=== PATIENT | male | born 1970 | race Caucasian/White ===

== ENCOUNTER 2019-12-11 23:45 | Emergency (ER) | payer MEDICAID, SELFPAY ==
[2019-12-11 23:48] VITALS: BP 131/88; PULSE 84; RESP 18; TEMP 36.6; O2SAT 94; BMI 30.9
--- NOTE | 2019-12-11 23:49 | CTR_ITS ---
PROCEDURE INFORMATION: Exam: CT Head Without Contrast Exam date and time: 12/11/2019 12:59 AM Age: 48 years old Clinical indication: Pain; Headache and other: Seizure; Headache not specified; Additional info: Seizure/injury TECHNIQUE: Imaging protocol: Computed tomography of the head without contrast. Radiation optimization: All CT scans at this facility use at least one of these dose optimization techniques: automated exposure control; mA and/or kV adjustment per patient size (includes targeted exams where dose is matched to clinical indication); or iterative reconstruction. COMPARISON: No relevant prior studies available. RADIATION DOSE METRICS: Total DLP (mGy-cm): 868.19 FINDINGS: Brain: No acute intracranial hemorrhage or mass effect. No definite acute infarct by CT. MRI could be more sensitive/specific for detection, as clinically directed. Ventricles: Ventricle size is normal for age. Bones/joints: No definite acute skull fracture. Sinuses: Included paranasal sinuses are essentially clear. Mastoid air cells: No significant acute finding. CT/CT head wo con* [id number] IMPRESSION: 1. No acute intracranial hemorrhage or mass effect. 2. No definite acute infarct by CT, see above. 3. Other findings discussed above. Radiation Dose CTDIVOL = (mGy): DLP = 868.19 (mGy-cm)
--- NOTE | 2019-12-11 23:49 | XRR_ITS ---
PROCEDURE INFORMATION: Exam: XR Chest, 1 View Exam date and time: 12/11/2019 12:35 AM Age: 48 years old Clinical indication: Other: Seizure TECHNIQUE: Imaging protocol: XR of the chest Views: 1 view. COMPARISON: No relevant prior studies available. FINDINGS: Lungs: Emphysematous change and mild right basilar airspace disease. Pleural space: No pleural effusion. Heart/Mediastinum: No cardiomegaly. Bones/joints: Unremarkable. XR/XR chest 1V portable [id number] IMPRESSION: Emphysematous change and mild right basilar airspace disease.
--- NOTE | 2019-12-11 23:49 | CTR_ITS ---
PROCEDURE INFORMATION: Exam: CT Abdomen And Pelvis With Contrast Exam date and time: 12/11/2019 12:58 AM Age: 48 years old Clinical indication: Abdominal pain; Acute; Prior surgery; Surgery date: 6+ months; Surgery type: Hernia; Additional info: Abdominal pain diffused TECHNIQUE: Imaging protocol: Computed tomography of the abdomen and pelvis with intravenous contrast. Radiation optimization: All CT scans at this facility use at least one of these dose optimization techniques: automated exposure control; mA and/or kV adjustment per patient size (includes targeted exams where dose is matched to clinical indication); or iterative reconstruction. Contrast material: OMNI 300; Contrast volume: 95 ml; Contrast route: INTRAVENOUS (IV); COMPARISON: No relevant prior studies available. RADIATION DOSE METRICS: Total DLP (mGy-cm): 955.8 FINDINGS: Lungs: The lung bases are clear. Mediastinal space: Small hiatal hernia. There may be some mucosal/wall thickening involving the lower esophagus. This is nonspecific, but could represent evidence for esophagitis. Please correlate clinically. Liver: Unremarkable. Gallbladder and bile ducts: The gallbladder is contracted. No visible gallstones by CT. No biliary tree dilation. Pancreas: Unremarkable. Spleen: Unremarkable. Adrenals: Unremarkable. Kidneys and ureters: Unremarkable. Stomach and bowel: There is diverticulosis involving the colon, without CT evidence of diverticulitis. Appendix: The appendix is visualized and appears normal. Intraperitoneal space: No free air, ascites, or bowel distention. Vasculature: No evidence for abdominal aortic aneurysm. Lymph nodes: No retroperitoneal adenopathy. Bladder: Unremarkable as visualized. Reproductive: Essentially unremarkable for age. Bones/joints: No significant acute finding. Soft tissues: No significant acute finding. CT/CT abdomen pelvis w con* [id number] IMPRESSION: 1. Normal appendix. 2. No free air or bowel distention. 3. Diverticulosis involving the colon, without CT evidence of diverticulitis. 4. Small hiatal hernia. Possibly some thickening of the lower esophagus, see above discussion. 5. Other findings discussed above. Radiation Dose CTDIVOL = (mGy): DLP = 955.8 (mGy-cm)
--- NOTE | 2019-12-12 00:17 | W.ED.SEIZURE ---
HPI - Seizure General: Chief Complaint: Seizure Stated Complaint: SEIZURE ACTIVITY Time Seen by Provider: 12/11/19 23:48 Source: patient and EMS Mode of arrival: EMS Limitations: no limitations History of Present Illness: HPI Narrative: Elias is a 48-year-old male with a history of seizure disorder that comes in today after having 3 seizures. Keppra 1000 mg every 8 hours but missed 2 doses today. Patient also admits to drinking some alcohol today. Seizures were witnessed by EMS and family. Patient arrives here to the ER in his normal state of health, non-postictal. He is complaining of a headache and he thinks he may have hit his head during 1 of the seizures. He is also complaining of mild abdominal pain. He denies any other injuries or complaints to any other areas of his body other than his head and abdomen. The patient does have a swollen right hand but he states this is from recent surgery for a fracture. He denies any fevers, chills or any other complaints. Associated symptoms: Deny chest pain, chills, confusion, diaphoresis, fever(s), malaise or syncope Review of Systems Const: Denies: fever(s), chills, body aches, fatigue, malaise or diaphoresis Eyes: Denies: change in vision, blurry vision, blind spots, photophobia, eye discharge or eye redness ENMT: Denies: throat pain, odynophagia, hoarseness, swelling of lips/tongue, oral sores, ear or mastoid pain, ear discharge, change in hearing or nasal discharge Card: Denies: chest pain, palpitations, irregular heart rhythm, edema, lightheadedness, syncope, pre-syncope, dyspnea on exertion or orthopnea Resp: Denies: dyspnea, productive cough, non-productive cough, wheezing, hemoptysis or chest congestion GI: Denies: abdominal pain, nausea, vomiting, hematemesis, coffee ground emesis, heartburn, diarrhea, constipation, GI cramping, hematochezia or melena : Denies: flank pain, dysuria, urinary frequency, urinary urgency or hematuria Musc: Denies: neck pain, back pain, extremity pain, extremity swelling, joint pain, joint swelling, joint redness, joint warmth or joint stiffness Skin/Breast: Denies: rash, pruritus, erythema, skin tenderness or jaundice Neuro: Reports: headache(s) and seizure-like activity (See HPI); Denies: numbness in extremities, weakness in extremities, sensory changes, lack of coordination, difficulty walking, dizziness, vertigo, confusion or Slurred speech present [place]/Lymph: Denies: easy bruising, easy bleeding, petechiae, purpura or enlarged lymph nodes All/Imm: Denies: urticaria, throat swelling, tongue swelling, facial swelling or acute wheezing PFSH ED PFSH: Medical History (Updated 12/12/19 @ 02:21 by Jessi Rodriguez) Seizures Surgical History (Updated 12/12/19 @ 00:22 by Jessi Rodriguez) H/O hand surgery Physical Exam Const: COMMON NORMALS: no acute distress, patient oriented x3, no limitations, healthy appearing and well nourished GENERAL APPEARANCE: cooperative, well kempt and well developed HENMT: COMMON NORMALS: normocephalic, atraumatic, external ears normal, EAC's normal and Normal external nose present HEAD & SCALP: normal to inspection, normocephalic and atraumatic FACE & SINUS: normal facial exam and face symmetric NOSE: Normal external nose present and Normal nares present EXTERNAL EAR: Yes external ears normal EXTERNAL AUDITORY CANAL: EAC's normal MOUTH: Normal oral and palatal mucosa present, lip normal and tongue normal Eye: COMMON NORMALS: Equal, round and reactive pupils present and conjunctivae normal GENERAL EYE: appearance normal, both eyes and all related structures ALIGNMENT: Yes alignment normal PERIORBITAL: periorbital findings normal EYELID: eyelids normal CONJUNCTIVA: Yes conjunctivae normal SCLERA: sclerae normal PUPIL: Yes Equal, round and reactive pupils present Neck/C-Spine: COMMON NORMALS: full ROM, no lymphadenopathy, supple, no meningeal signs and no JVD GENERAL: Yes normal visual inspection and Yes trachea midline Chest: COMMONS NORMALS: normal inspection of the chest and normal palpation of entire chest wall Resp: COMMON NORMALS: normal respiratory effort, No retractions and No use of accessory muscles EFFORT & INSPECTION: Yes able to speak in complete sentences and Yes symmetric chest movement AUSCULTATION: no crackles, no rales, no rhonchi and no wheezes Cardio: COMMON NORMALS: no JVD, regular rate, regular rhythm, S1 normal heart sound present and S2 normal heart sound present RATE: regular rate RHYTHM: regular rhythm HEART SOUNDS: S1 normal heart sound present, S2 normal heart sound present, no click, no gallops, no murmurs, no rubs and abnormal split S2 GI: COMMON NORMALS: Soft to palpation and No hepatosplenomegaly present PALPATION: Yes Soft to palpation, No Tenderness to palpation present (GI), No Guarding due to palpation present (GI), No Rigid due to palpation, Yes No hepatosplenomegaly present, No Hernia present, No Palpable mass present and No Pulsatile mass present : COMMON NORMALS: Yes no CVA tenderness BLADDER/KIDNEY EXAM: Yes no CVA tenderness Back/Pelvis: COMMON NORMALS: no CVA tenderness, thoracic and lumbar spine normal to inspection, no thoracic nor lumbar tenderness and thoraco-lumbar ROM normal Extremity: COMMON NORMALS: normal to inspection, full ROM, capillary refill normal, no joint enlargement, no clubbing, cyanosis or edema and no calf tenderness Neuro: COMMON NORMALS: patient oriented x3, CN's II-XII intact bilaterally, moves all extremities, no focal motor deficits and no sensory deficits noted MENINGEAL SIGNS: Yes no meningeal signs SPEECH: speech normal Psych: COMMON NORMALS: mental status grossly normal, Normal thought process present, cooperative, normal affect, speech normal and activity/motor behavior normal APPEARANCE: Yes well kempt SPEECH: Yes normal speech THOUGHT PROCESS: Normal thought process present Skin: COMMON NORMALS: no rashes or lesions noted, turgor normal, no jaundice, no petechiae and no mottling GENERAL SKIN EXAM: no rashes or lesions noted and turgor normal Course Vital Signs: Vital signs: Vital Signs Temperature 97.9 F 12/11/19 23:48 Pulse Rate 60 12/12/19 01:00 Respiratory Rate 18 12/12/19 01:00 Blood Pressure 158/74 12/12/19 01:00 Pulse Oximetry 94 12/12/19 01:00 MDM - Seizure MDM Narrative: Medical decision making narrative: Elias is a 48-year-old male who comes in complaining of abdominal pain after a seizure. He states he thinks he had blood in his stool a time back. He is refusing rectal exam. I see no evidence of acute life-threatening problem in his abdomen based upon CT and based upon abdominal exam. Patient is resting comfortably. I believe his breakthrough seizure was secondary to alcohol and missing his Keppra. He has been IV loaded. He understands precautions he needs to take and he commonly has breakthrough seizures he states 1-2 a week. Go and discharge the patient home and he will follow-up with his regular doctor. Lab Data: Attestation: I reviewed the patient's lab results. Labs: Lab Results 12/12/19 12/12/19 12/12/19 Range/Units 00:48 00:48 00:48 WBC 8.4 (4.0-10.0) 10^3/ uL RBC 5.44 H (4.1-5.3) 10^6/u L Hgb 15.4 (11.7-16.6) g/dL Hct 48.4 (42.0-52.0) % MCV 89.0 (80-94) fL MCH 28.3 (28.0-34.0) pg MCHC 31.8 (30.0-36.0) g/dL RDW 14.3 (12.1-15.1) % Plt Count 250 (130-400) 10^3/c mm MPV 9.7 (7.4-10.4) fL Neut % (Auto) 51.6 % Lymph % (Auto) 28.5 % [place] % (Auto) 13.7 % Eos % (Auto) 5.3 % Baso % (Auto) 0.7 % Neut # (Auto) 4.32 (1.8-7.7) 10^3/u L Lymph # (Auto) 2.4 (0.8-4.8) 10^3/u L [place] # (Auto) 1.2 H (0.2-0.9) 10^3/u L Eos # (Auto) 0.4 (0.0-0.8) 10^3/u L Baso # (Auto) 0.1 (0.0-0.1) 10^3/u L Nucleated RBC % (a uto) 0 % Nucleated RBCs # 0.0 /100WBC PT 11.90 (10.5-13.3) SECO NDS INR 0.85 (0.8-1.2) APTT 29.2 (23.9-36.7) SECO NDS Sodium 143 (136-145) mmol/L Potassium 4.3 (3.5-5.1) mmol/L Chloride 107 (98-107) mmol/L Carbon Dioxide 24 (22-29) mmol/L Anion Gap 16.3 (5-19) BUN 13 (6-20) mg/dL Creatinine 1.0 (0.7-1.2) mg/dL GFR Calculation 79.4 L (90-130) mL/min Glucose 93 (65-115) mg/dL Calculated Osmolal ity 292 (285-295) mOsm/k g Calcium 9.5 (8.5-10.5) mg/dL Magnesium 2.4 H (1.7-2.3) mg/dL Total Bilirubin 0.2 (0.15-1.2) mg/dL AST 19 (0-40) U/L ALT 20 (0-41) U/L Alkaline Phosphata se 93 (40-130) IU/L Total Protein 7.7 (6.6-8.7) g/dL Albumin 4.7 (3.5-5.2) g/dL Globulin 3.0 (1.3-4.6) g/dL Lipase 42 (13-60) U/L Imaging Data^: CXR: My impression: No acute cardiopulmonary findings. No sign of aspiration. CT Head: Radiologist's impression: [place] [address] CT Scan Report Signed Patient: Elias Martin Unit #: [id number] : 1970 Age/Sex: 48 / M ADM Date: 12/11/19 Loc: ER Room/Bed: Attending Dr: Ordering Provider/Ordering MD: Jessi Rodriguez DO Date of Service: 12/11/19 Procedure(s): CT head wo con* [id number] Accession Number(s): [id number] Report Number: [id number] PROCEDURE INFORMATION: Exam: CT Head Without Contrast Exam date and time: 12/11/2019 12:59 AM Age: 48 years old Clinical indication: Pain; Headache and other: Seizure; Headache not specified; Additional info: Seizure/injury TECHNIQUE: Imaging protocol: Computed tomography of the head without contrast. Radiation optimization: All CT scans at this facility use at least one of these dose optimization techniques: automated exposure control; mA and/or kV adjustment per patient size (includes targeted exams where dose is matched to clinical indication); or iterative reconstruction. COMPARISON: No relevant prior studies available. RADIATION DOSE METRICS: Total DLP (mGy-cm): 868.19 FINDINGS: Brain: No acute intracranial hemorrhage or mass effect. No definite acute infarct by CT. MRI could be more sensitive/specific for detection, as clinically directed. Ventricles: Ventricle size is normal for age. Bones/joints: No definite acute skull fracture. Sinuses: Included paranasal sinuses are essentially clear. Mastoid air cells: No significant acute finding. CT/CT head wo con* [id number] IMPRESSION: 1. No acute intracranial hemorrhage or mass effect. 2. No definite acute infarct by CT, see above. 3. Other findings discussed above. Radiation Dose CTDIVOL = (mGy): DLP = 868.19 (mGy-cm) Dictated By: Francesco Haskins MD Signed By: Francesco Haskins MD Signed Date/Time: 12/12/19202 DD/ 1 CT Abd/Pel: Radiologist's impression: [place] [address] CT Scan Report Signed Patient: Elias Martin Unit #: [id number] : 1970 Age/Sex: 48 / M ADM Date: 12/11/19 Loc: ER Room/Bed: Attending Dr: Ordering Provider/Ordering MD: Jessi Rodriguez DO Date of Service: 12/11/19 Procedure(s): CT abdomen pelvis w con* [id number] Accession Number(s): [id number] Report Number: [id number] PROCEDURE INFORMATION: Exam: CT Abdomen And Pelvis With Contrast Exam date and time: 12/11/2019 12:58 AM Age: 48 years old Clinical indication: Abdominal pain; Acute; Prior surgery; Surgery date: 6+ months; Surgery type: Hernia; Additional info: Abdominal pain diffused TECHNIQUE: Imaging protocol: Computed tomography of the abdomen and pelvis with intravenous contrast. Radiation optimization: All CT scans at this facility use at least one of these dose optimization techniques: automated exposure control; mA and/or kV adjustment per patient size (includes targeted exams where dose is matched to clinical indication); or iterative reconstruction. Contrast material: OMNI 300; Contrast volume: 95 ml; Contrast route: INTRAVENOUS (IV); COMPARISON: No relevant prior studies available. RADIATION DOSE METRICS: Total DLP (mGy-cm): 955.8 FINDINGS: Lungs: The lung bases are clear. Mediastinal space: Small hiatal hernia. There may be some mucosal/wall thickening involving the lower esophagus. This is nonspecific, but could represent evidence for esophagitis. Please correlate clinically. Liver: Unremarkable. Gallbladder and bile ducts: The gallbladder is contracted. No visible gallstones by CT. No biliary tree dilation. Pancreas: Unremarkable. Spleen: Unremarkable. Adrenals: Unremarkable. Kidneys and ureters: Unremarkable. Stomach and bowel: There is diverticulosis involving the colon, without CT evidence of diverticulitis. Appendix: The appendix is visualized and appears normal. Intraperitoneal space: No free air, ascites, or bowel distention. Vasculature: No evidence for abdominal aortic aneurysm. Lymph nodes: No retroperitoneal adenopathy. Bladder: Unremarkable as visualized. Reproductive: Essentially unremarkable for age. Bones/joints: No significant acute finding. Soft tissues: No significant acute finding. CT/CT abdomen pelvis w con* [id number] IMPRESSION: 1. Normal appendix. 2. No free air or bowel distention. 3. Diverticulosis involving the colon, without CT evidence of diverticulitis. 4. Small hiatal hernia. Possibly some thickening of the lower esophagus, see above discussion. 5. Other findings discussed above. Radiation Dose CTDIVOL = (mGy): DLP = 955.8 (mGy-cm) Dictated By: Francesco Haskins MD Signed By: Francesco Haskins MD Signed Date/Time: 12/12/19212 DD/ 1 EKG Data^: EKG 1: Attestation: I personally reviewed and interpreted this EKG as follows: EKG interpretation date: 12/12/19 EKG interpretation time: 00:04 Interpretation: Normal sinus rhythm at 80 beats a minute, no acute ST-T wave changes. Discharge Plan Discharge Patient Disposition: Home, Self-Care Clinical Impression: Seizures Abdominal pain Qualifiers: Abdominal location: generalized Qualified Code(s): R10.84 - Generalized abdominal pain Condition: Stable Discharge Orders: Discharge Order (Routine); Ordered 12/12/19 Ordered By: Jessi Rodriguez Referrals: Cierra Davis MD [Physician] - 1-3 days Patient Instructions: Epilepsy (ED), Abdominal Pain (ED), Recurrent Seizures Adult (ED) Activity Restrictions/Additional Instructions: Please return to the ER immediately for any of the signs or symptoms listed on your discharge instruction sheets, worsening/changing of your symptoms, you are not getting better as quickly as expected, or for ANY other cause or concerns. No driving, no working at heights, no tub baths, no swimming alone or anything else that would put you at risk should you have another seizure. Take your medicine as directed and abstain from alcohol as it will lower your seizure threshold. Discharge Date/Time: 12/12/19 02:48 Coding Level of Care Code ED Quality Control Representative for [place] Fwd Exam Comprehensive
[2019-12-12 00:28] VITALS: BP 137/84; PULSE 96; RESP 16; O2SAT 95
[2019-12-12] MEDS: LORazepam 2 mg/mL INJ 1 mL 1 MG IVP (00:38)
[2019-12-12] MEDS: pantoprazole 40 mg SDV 80 MG IVP (00:39)
[2019-12-12] MEDS: ondansetron 2 mg/ML SDV 2 mL 4 MG IVP (00:39)
[2019-12-12 01:00] VITALS: BP 158/74; PULSE 60; RESP 18; O2SAT 94
[2019-12-12 01:18] LABS: Alanine Aminotransferase 20 U/L (0-41); Albumin Level 4.7 g/dL (3.5-5.2); Alkaline Phosphatase 93 IU/L (40-130); Anion Gap 16.3 (5-19); Aspartate Amino Transferase 19 U/L (0-40); Blood Urea Nitrogen 13 mg/dL (6-20); Calcium 9.5 mg/dL (8.5-10.5); Carbon Dioxide 24 mmol/L (22-29); Chloride 107 mmol/L (98-107); Glomerular Filtration Rate 79.4 mL/min (90-130); Glucose 93 mg/dL (65-115); Lipase 42 U/L (13-60); Magnesium 2.4 mg/dL (1.7-2.3); Osmolality Calculated 292 mOsm/kg (285-295); Potassium 4.3 mmol/L (3.5-5.1); Sodium 143 mmol/L (136-145); Total Bilirubin 0.2 mg/dL (0.15-1.2); Total Protein 7.7 g/dL (6.6-8.7)
[2019-12-12] MEDS: iohexol 300 mg/mL 100 mL Btl IV (01:26)
[2019-12-12 01:27] LABS: Basophils # 0.1 10^3/uL (0.0-0.1); Basophils % 0.7 %; Eosinophils # 0.4 10^3/uL (0.0-0.8); Eosinophils % 5.3 %; Hematocrit 48.4 % (42.0-52.0); Hemoglobin 15.4 g/dL (11.7-16.6); Lymphocytes # 2.4 10^3/uL (0.8-4.8); Lymphocytes % 28.5 %; Mean Corpuscular HGB Conc 31.8 g/dL (30.0-36.0); Mean Corpuscular Hemoglobin 28.3 pg (28.0-34.0); Mean Platelet Volume 9.7 fL (7.4-10.4); Monocytes # 1.2 10^3/uL (0.2-0.9); Monocytes % 13.7 %; Neutrophils # 4.32 10^3/uL (1.8-7.7); Neutrophils % 51.6 %; Nucleated Red Blood Cells % 0 %; Platelet Count 250 10^3/cmm (130-400); Red Blood Count 5.44 10^6/uL (4.1-5.3); Red Cell Distribution Width 14.3 % (12.1-15.1); White Blood Count 8.4 10^3/uL (4.0-10.0)
[2019-12-12 01:32] LABS: INR 0.85 (0.8-1.2)
[2019-12-12 01:33] LABS: Partial Thromboplastin Time 29.2 SECONDS (23.9-36.7)
[2019-12-12] MEDS: ibuprofen 600 mg Tablet PO (01:35)
[2019-12-12] MEDS: acetaminophen 500 mg Tablet 1000 MG PO (01:35)
== END 2019-12-12 02:48 | disposition home or self-care (01) ==
PROVIDERS: Emergency Provider Emergency Medicine
DX: R56.9 Unspecified convulsions (principal); R10.84 Generalized abdominal pain
CPT/HCPCS: 12345; 70450; 71045; 74177; 80053; 83690; 83735; 85025; 85610; 85730; 96365; 96366; 96375; 99284; C9113; J1953; J2060; J2405; Q9967